=== PATIENT | female | born 1955 | race Caucasian/White ===

== ENCOUNTER 2019-11-03 16:58 | Emergency (ER) | payer SELFPAY ==
--- NOTE | 2019-11-03 17:52 | EDM.PDOC ---
ED HPI GENERAL MEDICAL PROBLEM - General Chief Complaint: General Stated Complaint: MEDICAL [facility]IA [facility] Time Seen by Provider: 11/03/19 17:25 Source of Information: Reports: Patient, EMS, Family History Limitations: Reports: Altered Mental Status, Other (Patient is struggling with significant confusion) - History of Present Illness INITIAL COMMENTS - FREE TEXT/NARRATIVE: 64-year-old female who was found at home repeatedly dialing 911 over several hours. The calls were going through but then she was hanging up so they had the pain her phone to localized her. On arrival they found her in no distress but jaundiced, severely confused initially and continually trying to dial 911 even if her phone was gone. claims that she was "normal" yesterday. When EMS arrived they had to give her 5 mg of IM Versed to get her to cooperate. She was agitated and insistent on continually dilating her phone, they could not carry on a conversation with her initially. Onset: Unknown/Unsure Associated Symptoms: Reports: Malaise. 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 Denies: Fever, Chills HEENT: Denies: Vision Change Respiratory: Reports: No Symptoms Cardiovascular: Reports: No Symptoms GI/Abdominal: Reports: Decreased Appetite Neurological: Reports: Confusion, Trouble Speaking. Denies: Headache Psychiatric: Reports: No Symptoms ED EXAM, GENERAL - Physical Exam Exam: See Below Exam Limited By: No Limitations General Appearance: Alert, No Apparent Distress, Other (On arrival to the emergency room she was still confused but it cleared rapidly) Eye Exam: Bilateral Eye: Nystagmus (I could not induce nystagmus either direction), Other (Significant bilateral jaundice) Head: Atraumatic Neck: Supple, Non-Tender Respiratory/Chest: Lungs Clear Cardiovascular: Regular Rate, Rhythm GI/Abdominal: Soft, Non-Tender Extremities: Other (Numerous spider veins of the extremities especially the feet). No: Pedal Edema Neurological: Confused, Disoriented, Slow to Respond Psychiatric: Anxious Course - Vital Signs Last Recorded V/S: Last Vital Signs Temp 98.6 F 11/03/19 17:05 Pulse 88 11/03/19 17:58 Resp 12 11/03/19 17:58 BP 117/67 11/03/19 17:58 Pulse Ox 99 11/03/19 17:58 - Orders/Labs/Meds Labs: Laboratory Tests 11/03/19 11/03/19 11/03/19 Range/Units 17:15 17:15 17:15 WBC 7.7 (4.5-11.0) K/uL RBC 3.77 (3.30-5.50) M/uL Hgb 13.5 (12.0-15.0) g/dL Hct 36.9 (36.0-48.0) % MCV 98 (80-98) fL MCH 36 H (27-31) pg MCHC 37 H (32-36) % Plt Count 167 (150-400) K/uL Neut % (Auto) 94 H (36-66) % Lymph % (Auto) 3 L (24-44) % [place] % (Auto) 3 (2-6) % Eos % (Auto) 0 L (2-4) % Baso % (Auto) 0 (0-1) % Sodium 115 L* (140-148) mmol/L Potassium 3.1 L (3.6-5.2) mmol/L Chloride 76 L (100-108) mmol/L Carbon Dioxide 26 (21-32) mmol/L Anion Gap 16.1 H (5.0-14.0) mmol/L BUN 11 (7-18) mg/dL Creatinine 1.3 H (0.6-1.0) mg/dL Est Cr Clr Drug Dosing 40.38 mL/min Estimated GFR (MDRD) 42 L (>60) Glucose 172 H (74-106) mg/dL Calcium 9.2 (8.5-10.1) mg/dL Total Bilirubin 8.1 H (0.2-1.0) mg/dL AST 175 H (15-37) U/L ALT 63 (12-78) U/L Alkaline Phosphatase 185 H (46-116) U/L Ammonia (11-32) mmol/L Total Protein 7.6 (6.4-8.2) g/dL Albumin 3.7 (3.4-5.0) g/dL Globulin 3.9 H (2.3-3.5) g/dL Albumin/Globulin Ratio 1.0 L (1.2-2.2) Lipase 97 (73-393) U/L Urine Color (YELLOW) Urine Appearance (CLEAR) Urine pH (5.0-8.0) Ur Specific [place] (1.008-1.030) Urine Protein (NEGATIVE) mg/dL Urine Glucose (UA) (NEGATIVE) mg/dL Urine Ketones (NEGATIVE) mg/dL Urine Occult Blood (NEGATIVE) Urine Nitrite (NEGATIVE) Urine Bilirubin (NEGATIVE) Urine Urobilinogen (0.2-1.0) EU/dL Ur Leukocyte Esterase (NEGATIVE) Urine RBC (0-5) Urine WBC (0-5) Ur Epithelial Cells Amorphous Sediment Urine Bacteria Urine Mucus Urine Other Ethyl Alcohol mg/dL 11/03/19 11/03/19 11/03/19 Range/Units 17:15 17:15 18:29 WBC (4.5-11.0) K/uL RBC (3.30-5.50) M/uL Hgb (12.0-15.0) g/dL Hct (36.0-48.0) % MCV (80-98) fL MCH (27-31) pg MCHC (32-36) % Plt Count (150-400) K/uL Neut % (Auto) (36-66) % Lymph % (Auto) (24-44) % [place] % (Auto) (2-6) % Eos % (Auto) (2-4) % Baso % (Auto) (0-1) % Sodium (140-148) mmol/L Potassium (3.6-5.2) mmol/L Chloride (100-108) mmol/L Carbon Dioxide (21-32) mmol/L Anion Gap (5.0-14.0) mmol/L BUN (7-18) mg/dL Creatinine (0.6-1.0) mg/dL Est Cr Clr Drug Dosing mL/min Estimated GFR (MDRD) (>60) Glucose (74-106) mg/dL Calcium (8.5-10.1) mg/dL Total Bilirubin (0.2-1.0) mg/dL AST (15-37) U/L ALT (12-78) U/L Alkaline Phosphatase (46-116) U/L Ammonia 29 (11-32) mmol/L Total Protein (6.4-8.2) g/dL Albumin (3.4-5.0) g/dL Globulin (2.3-3.5) g/dL Albumin/Globulin Ratio (1.2-2.2) Lipase (73-393) U/L Urine Color Brown A (YELLOW) Urine Appearance Cloudy A (CLEAR) Urine pH 6.5 (5.0-8.0) Ur Specific [place] 1.020 (1.008-1.030) Urine Protein Trace H (NEGATIVE) mg/dL Urine Glucose (UA) Negative (NEGATIVE) mg/dL Urine Ketones Negative (NEGATIVE) mg/dL Urine Occult Blood Negative (NEGATIVE) Urine Nitrite Positive H (NEGATIVE) Urine Bilirubin Small H (NEGATIVE) Urine Urobilinogen 2.0 H (0.2-1.0) EU/dL Ur Leukocyte Esterase Negative (NEGATIVE) Urine RBC 5-10 H (0-5) Urine WBC 0-5 (0-5) Ur Epithelial Cells Many Amorphous Sediment Many Urine Bacteria Many Urine Mucus Many Urine Other See note Ethyl Alcohol 7 mg/dL Meds: Medications Discontinued Medications Generic Name Dose Route Start Last Admin Trade Name Freq PRN Reason Stop Dose Admin Thiamine HCl 500 mg/ Sodium 105 mls @ 210 mls/hr 11/03/19 18:06 11/03/19 19:28 Chloride IV 11/03/19 18:07 210 mls/hr ONETIME ONE Administration Sodium Chloride 1,000 mls @ 150 mls/hr 11/03/19 18:30 11/03/19 19:29 Normal Saline IV 150 mls/hr ASDIRECTED GIANCARLO Administration - Re-Assessments/Exams Free Text/Narrative Re-Assessment/Exam: 11/03/19 18:38 An IV was started, CBC, ammonia, CMP and lipase were obtained. CBC was normal, ammonia was normal, but bilirubin was 8.1, sodium 115 and chloride 76. She was also volume contracted with a slightly elevated creatinine and a GFR of 46. She was given 500 mg of IV thiamine initiated, and 150 cc of normal saline an hour. We have no beds available at the hospital so she will be transferred to [facility], Dr. Olivarez accepted the patient. Prior to transfer the hospitalist service at [facility] asked for CT the head so this was ordered, and care was turned over to Dr. Claire pending disposition. Initially I thought the patient was having Wernicke's encephalopathy, but now it appears she may have been postictal possibly having a seizure from her hyponatremia. Alcohol level was 0.007, she likely is having the symptoms due to chronic alcoholism. Departure - Departure Time of Disposition: 19:31 Disposition: DC/Tfer to Other Clinical Impression: Hyponatremia, Hyperbilirubinemia, Delirium - Discharge Information Referrals: PCP,None [Primary Care Provider] - Forms: ED Department Discharge Care Plan Goals: After her head CT, images will be pushed to [facility] and the patient will be arranged for transfer for further evaluation and treatment of severe hyponatremia, hyperbilirubinemia and confusion. Sepsis Event Note (ED) - Evaluation Sepsis Screening Result: No Definite Risk
[2019-11-03] MEDS ORDERED: Thiamine 500 MG in Sodium Chloride 0.9% 100 ML IV ONE (18:06)
[2019-11-03] MEDS ORDERED: Sodium Chloride 0.9% 1,000 ML IV SCH (18:30)
--- NOTE | 2019-11-03 19:30 | CRLCT ---
INDICATION: Confusion TECHNIQUE: Head CT without contrast. COMPARISON: None FINDINGS: CSF spaces: Within normal limits for age. Brain parenchyma: There are nonspecific low attenuation white matter changes consistent with chronic microvascular disease. No sign of mass, hemorrhage, or midline shift. Skull base and calvarium: The visualized paranasal sinuses and mastoid air cells demonstrate no acute or significant findings. The visualized orbits are grossly unremarkable. No skull fractures. IMPRESSION: 1. No acute findings. 2. Nonspecific white matter disease, typical of chronic microvascular disease. Please note that all CT scans at this facility use dose modulation, iterative reconstruction, and/or weight-based dosing when appropriate to reduce radiation dose to as low as reasonably achievable. Dictated by Damaris Walls MD @ Nov 03 2019 7:24PM Signed by Dr. Damaris Walls @ Nov 03 2019 7:28PM
== END 2019-11-03 19:31 | disposition other institution (70) ==
LOC: JP.ED 16:58
DX: E87.1 Hypo-osmolality and hyponatremia (principal); E80.6 Other disorders of bilirubin metabolism; R41.0 Disorientation, unspecified; I10 Essential (primary) hypertension; E03.9 Hypothyroidism, unspecified; Z87.891 Personal history of nicotine dependence; Z79.899 Other long term (current) drug therapy
CPT/HCPCS: 36415; 70450; 80053; 80307; 81001; 82140; 83690; 85025; 96374; 99285; J3411; J7030; J7050; 99284

== ENCOUNTER 2021-03-22 13:26 | Emergency (ER) | payer MEDICAID ==
--- NOTE | 2021-03-22 14:18 | EDM.PDOC ---
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 She called last week to make and appt to see her doctor and can't get in until the of this month. She admits to being a heavy drinker, but has not drank recently. She denies fever or chills. May be mildly constipated. Onset: Gradual Onset Date: 02/17/21 Duration: Week(s): (4+), Getting Worse Location: Reports: Abdomen, Lower Extremity, Left, Lower Extremity, Right Quality: Reports: Dull, Pressure Severity: Mild Improves with: Reports: None Worsens with: Reports: Other (time) Context: Reports: Other (See HPI) Associated Symptoms: Reports: No Other Symptoms. 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 Psychiatric History: Reports: Addiction Endocrine/Metabolic History: Reports: Hypothyroidism - Infectious Disease History Infectious Disease History: Reports: Chicken Pox Social & Family History - Tobacco Use Tobacco Use Status *Q: Never Tobacco User - Caffeine Use Caffeine Use: Reports: Coffee - Recreational Drug Use Recreational Drug Use: No ED ROS GENERAL - Review of Systems Review Of Systems: See Below Constitutional: Reports: No Symptoms HEENT: Reports: No Symptoms Respiratory: Reports: No Symptoms Cardiovascular: Reports: Edema (of both legs) GI/Abdominal: Reports: Constipation (mild), Distension. Denies: Nausea, Vomiting : Reports: No Symptoms Musculoskeletal: Reports: No Symptoms Skin: Reports: No Symptoms Neurological: Reports: No Symptoms ED EXAM, GENERAL - Physical Exam Exam: See Below Exam Limited By: No Limitations General Appearance: Alert, WD/WN, No Apparent Distress Eye Exam: Bilateral Eye: Other (bilateral scleral icterus) Ears: Normal External Exam, Normal Canal, Hearing Grossly Normal Ear Exam: Bilateral Ear: Auricle Normal, Canal Normal Nose: Normal Inspection, No Blood Throat/Mouth: Normal Inspection, Normal Lips, Normal Oropharynx, Normal Voice, No Airway Compromise Head: Atraumatic, Normocephalic Neck: Normal Inspection Respiratory/Chest: No Respiratory Distress, Lungs Clear, Normal Breath Sounds, No Accessory Muscle Use Cardiovascular: Regular Rate, Rhythm. No: No Edema (1+ pitting edema of both legs below the knees) GI/Abdominal: Normal Bowel Sounds, Non-Tender, Distended, Other (ascites present). No: Soft (firm), No Distention, Tender Extremities: Normal Inspection, Pedal Edema (1+ pitting). No: Non-Tender, No Pedal Edema, Tomasz's Sign, Limited Range of Motion, Increased Warmth, Redness Neurological: Alert, Oriented, CN II-XII Intact, Normal Cognition, No Motor/Sensory Deficits Psychiatric: Normal Affect, Normal Mood Skin Exam: Warm, Dry, Intact, Normal Color, No Rash Course - Vital Signs Last Recorded V/S: Last Vital Signs Temp 36.6 C 03/22/21 13:59 Pulse 104 H 03/22/21 13:59 Resp 16 03/22/21 13:59 BP 122/60 03/22/21 13:59 Pulse Ox 97 03/22/21 13:59 - Orders/Labs/Meds Orders: Active Orders 24 hr Category Date Time Status UA W/MICROSCOPIC [URIN] Stat Lab 03/22/21 14:13 Ordered Spironolactone [Aldactone] Med 03/22/21 15:00 Once 25 mg PO ONETIME ONE Labs: Laboratory Tests 03/22/21 03/22/21 Range/Units 14:26 14:26 WBC 6.7 (4.5-11.0) K/uL RBC 3.46 (3.30-5.50) M/uL Hgb 12.6 (12.0-15.0) g/dL Hct 36.3 (36.0-48.0) % MCV 105 H (80-98) fL MCH 36 H (27-31) pg MCHC 35 (32-36) % Plt Count 124 L (150-400) K/uL Sodium 125 L (140-148) mmol/L Potassium 3.3 L (3.6-5.2) mmol/L Chloride 89 L (100-108) mmol/L Carbon Dioxide 27 (21-32) mmol/L Anion Gap 12.3 (5.0-14.0) mmol/L BUN 17 D (7-18) mg/dL Creatinine 1.2 H (0.6-1.0) mg/dL Est Cr Clr Drug Dosing 43.18 mL/min Estimated GFR (MDRD) 45 L (>60) Glucose 116 H (74-106) mg/dL Calcium 8.4 L (8.5-10.1) mg/dL Total Bilirubin 14.6 H D (0.2-1.0) mg/dL AST 143 H (15-37) U/L ALT 42 (12-78) U/L Alkaline Phosphatase 161 H (46-116) U/L Total Protein 6.3 L (6.4-8.2) g/dL Albumin 2.0 L (3.4-5.0) g/dL Globulin 4.3 H (2.3-3.5) g/dL Albumin/Globulin Ratio 0.5 L (1.2-2.2) Departure - Departure Time of Disposition: 15:10 Disposition: Home, Self-Care 01 Condition: Fair Clinical Impression: Ascites Qualifiers: Ascites type: due to alcoholic hepatitis Qualified Code(s): K70.11 - Alcoholic hepatitis with ascites - Discharge Information *PRESCRIPTION DRUG MONITORING PROGRAM REVIEWED*: Not Applicable *COPY OF PRESCRIPTION DRUG MONITORING REPORT IN PATIENT BLAISE: Not Applicable Referrals: Sheldon Tran MD [Primary Care Provider] - Forms: ED Department Discharge Additional Instructions: Take spironolactone 25 mg in the AM and midafternoon daily. Elevate your legs above your heart to help reduce the swelling. NO alcohol at all should be used from now on as your liver is failing and further damage threatens worsening your condition. See your doctor for follow up and to have your labs followed and med dosages adjusted. Sepsis Event Note (ED) - Evaluation Sepsis Screening Result: No Definite Risk - Focused Exam Vital Signs: Vital Signs Temp Pulse Resp BP Pulse Ox 03/22/21 13:59 36.6 C 104 H 16 122/60 97 03/22/21 13:53 36.6 C 104 H 16 122/60 97 - My Orders Last 24 Hours: My Active Orders 03/22/21 14:13 UA W/MICROSCOPIC [URIN] Stat 03/22/21 15:00 Spironolactone [Aldactone] 25 mg PO ONETIME ONE - Assessment/Plan Last 24 Hours: My Active Orders 03/22/21 14:13 UA W/MICROSCOPIC [URIN] Stat 03/22/21 15:00 Spironolactone [Aldactone] 25 mg PO ONETIME ONE
[2021-03-22] MEDS ORDERED: Spironolactone 25 MG Tab PO ONE (15:00)
== END 2021-03-22 15:24 | disposition home or self-care (01) ==
LOC: JP.ED 13:26
DX: K70.31 Alcoholic cirrhosis of liver with ascites (principal); I10 Essential (primary) hypertension; E03.9 Hypothyroidism, unspecified; Z79.899 Other long term (current) drug therapy
CPT/HCPCS: 36415; 80053; 85027; 99284; A9270

== ENCOUNTER 2025-03-10 12:47 | Inpatient (IN) | payer MEDICAID, MEDICARE ==
[2025-03-10] MEDS ORDERED: Naloxone 0.4 MG/ML SDV IVPUSH PRN (13:45)
[2025-03-10] MEDS: diphenhydrAMINE 50 MG/ML SDV IVPUSH ONE (14:06)
[2025-03-10] MEDS: Ondansetron 4 MG/2 ML SDV IVPUSH ONE (14:11)
[2025-03-10 14:18] LABS: BASOPHILS ABSOLUTE AUTO 0.05 K/uL (0.00-0.10); BASOPHILS PERCENT AUTO 0.8 % (0.1-1.3); EOSINOPHILS ABSOLUTE AUTO 1.05 K/uL (0.00-0.40); EOSINOPHILS PERCENT AUTO 16.1 % (0.0-5.4); IMMATURE GRAN ABSOLUTE AUTO 0.04 K/uL (0.00-0.23); IMMATURE GRAN PERCENT AUTO 0.6 % (0.0-0.7); LYMPHOCYTES ABSOLUTE AUTO 0.67 K/uL (0.8-3.3); LYMPHOCYTES PERCENT AUTO 10.3 % (11.4-47.7); MONOCYTES ABSOLUTE AUTO 0.79 K/uL (0.20-0.90); MONOCYTES PERCENT AUTO 12.1 % (3.3-12.6); NEUTROPHILS ABSOLUTE AUTO 3.93 K/uL (1.0-7.6); NEUTROPHILS PERCENT AUTO 60.1 % (40.0-78.1); PLATELET COUNT,PLT 85 K/uL (130-375); WHITE BLOOD CELL COUNT,WBC 6.5 K/uL (3.2-11.0)
[2025-03-10 14:28] LABS: RED BLOOD CELL COUNT 1.79 M/uL (3.77-5.24)
[2025-03-10 14:30] LABS: A/G RATIO 0.5 (1.2-2.2); ALANINE AMINOTRANSFERASE,ALT 26 U/L (12-78); BILIRUBIN TOTAL 17.4 mg/dL (0.2-1.0); BLOOD UREA NITROGEN,BUN 15 mg/dL (7-18); CARBON DIOXIDE,CO2 29 mmol/L (21-32); CHLORIDE,CL 89 mmol/L (100-108); EST CRCL DRUG DOSING (CG) 30.06 mL/min; ESTIMATED GFR 33 mL/min (>60); GLUCOSE RANDOM 129 mg/dL (74-106); SODIUM,NA 128 mmol/L (140-148)
[2025-03-10 14:34] LABS: ASPARTATE AMNIOTRANSFERASE,AST 47 U/L (15-37); CREATININE 1.7 mg/dL (0.6-1.0); PROTEIN TOTAL,TP 5.4 g/dL (6.4-8.2)
[2025-03-10 14:35] LABS: POTASSIUM,K 2.8 mmol/L (3.6-5.2)
[2025-03-10] MEDS: NS + KCl 20mEq/L 1,000 ML IV SCH (15:12)
[2025-03-10 15:58] LABS: AMPHETAMINES SCREEN, URINE NEGATIVE (NEGATIVE); METHADONE SCREEN, URINE NEGATIVE (NEGATIVE); METHAMPHETAMINES SCREEN, URINE NEGATIVE (NEGATIVE); OXYCODONE SCREEN,URINE NEGATIVE (NEGATIVE); PROPOXYPHENE SCREEN,URINE NEGATIVE (NEGATIVE); THC SCREEN,URINE 50 NG/ML NEGATIVE (NEGATIVE)
[2025-03-10 16:00] LABS: APPEARANCE,URINE CLOUDY (CLEAR); GLUCOSE,URINE NEGATIVE (NEGATIVE); OCCULT BLOOD,URINE NEGATIVE (NEGATIVE)
[2025-03-10 16:02] LABS: SQUAMOUS EPITHELIAL CELLS,UR MODERATE /HPF; UROTHELIAL CELLS,URINE NOT SEEN /HPF
[2025-03-10] MEDS: Ciprofloxacin in D5W 400 MG in Premix Bag 1 BAG IV ONE (17:02)
[2025-03-10 17:20] LABS: INR 2.2
[2025-03-10] MEDS: Potassium Chloride 20 MEQ Tab.ER PO ONE ×2 (17:29→21:12)
[2025-03-10] MEDS: Albumin Human 25 GM in Premix Bag 1 BAG IV ONE (17:29)
[2025-03-10] MEDS ORDERED: Sodium Chloride 0.9% 10 ML Syringe FLUSH PRN (19:01)
[2025-03-10] MEDS ORDERED: Ondansetron 4 MG/2 ML SDV IV PRN (19:01)
[2025-03-10] MEDS ORDERED: Albuterol 0.083% 2.5 MG/3 ML Neb Soln NEB PRN (19:01)
[2025-03-10] MEDS: Magnesium Sulfate 2 GM/50 mL 2 GM in Premix Bag 1 BAG IV SCH (19:36)
[2025-03-10] MEDS: Lactulose Soln 10 GM/15 ML 15 ML UD Cup PO SCH (21:11)
[2025-03-11 06:03] LABS: PLATELET COUNT,PLT 55.0 K/uL (130-375); RED BLOOD CELL COUNT 1.57 M/uL (3.77-5.24); WHITE BLOOD CELL COUNT,WBC 6.9 K/uL (3.2-11.0)
[2025-03-11 06:19] LABS: INR 2.6
[2025-03-11 06:33] LABS: A/G RATIO 0.7 (1.2-2.2); ALANINE AMINOTRANSFERASE,ALT 21 U/L (12-78); ASPARTATE AMNIOTRANSFERASE,AST 38 U/L (15-37); BILIRUBIN TOTAL 17.2 mg/dL (0.2-1.0); BLOOD UREA NITROGEN,BUN 15 mg/dL (7-18); CARBON DIOXIDE,CO2 30 mmol/L (21-32); CHLORIDE,CL 94 mmol/L (100-108); CREATININE 1.5 mg/dL (0.6-1.0); EST CRCL DRUG DOSING (CG) 34.07 mL/min; ESTIMATED GFR 38 mL/min (>60); GLUCOSE RANDOM 97 mg/dL (74-106); POTASSIUM,K 4.0 mmol/L (3.6-5.2); PROTEIN TOTAL,TP 4.9 g/dL (6.4-8.2); SODIUM,NA 129 mmol/L (140-148)
[2025-03-11] MEDS ORDERED: Non-Formulary Medication 1 Each (Magnesium Oxide/Mag Aa Chelate [Magnesium] 300 MG Capsule PO SCH (09:00)
[2025-03-11] MEDS: Albumin Human 25 GM in Premix Bag 1 BAG IV ONE (14:00)
[2025-03-12 06:03] LABS: PLATELET COUNT,PLT 47.0 K/uL (130-375); WHITE BLOOD CELL COUNT,WBC 6.2 K/uL (3.2-11.0)
[2025-03-12 06:23] LABS: A/G RATIO 0.9 (1.2-2.2); ALANINE AMINOTRANSFERASE,ALT 22 U/L (12-78); ASPARTATE AMNIOTRANSFERASE,AST 62 U/L (15-37); BILIRUBIN TOTAL 13.7 mg/dL (0.2-1.0); BLOOD UREA NITROGEN,BUN 14 mg/dL (7-18); CARBON DIOXIDE,CO2 27 mmol/L (21-32); CHLORIDE,CL 94 mmol/L (100-108); CREATININE 1.5 mg/dL (0.6-1.0); EST CRCL DRUG DOSING (CG) 34.07 mL/min; ESTIMATED GFR 38 mL/min (>60); GLUCOSE RANDOM 140 mg/dL (74-106); POTASSIUM,K 3.7 mmol/L (3.6-5.2); PROTEIN TOTAL,TP 4.8 g/dL (6.4-8.2); SODIUM,NA 128 mmol/L (140-148)
[2025-03-12 06:29] LABS: INR 2.5; RED BLOOD CELL COUNT 1.89 M/uL (3.77-5.24)
== END 2025-03-13 11:10 | disposition home health service (06) | DRG 433 ==
LOC: JP.ED 12:47 → JP.ICU 17:01
PROVIDERS: ADMIT Hospitalist; ATTEND Internal Medicine
PROC: 30233N1 Transfusion of Nonautologous Red Blood Cells into Peripheral Vein, Percutaneous Approach (ICD-10-PCS; principal; 2025-03-10)
PROC: 0W9G3ZZ Drainage of Peritoneal Cavity, Percutaneous Approach (ICD-10-PCS; principal; 2025-03-10)
DX: K70.31 Alcoholic cirrhosis of liver with ascites (principal); D61.818 Other pancytopenia; N17.9 Acute kidney failure, unspecified; I10 Essential (primary) hypertension; N30.00 Acute cystitis without hematuria; K76.82 Hepatic encephalopathy; Z79.890 Hormone replacement therapy; K72.90 Hepatic failure, unspecified without coma; E03.9 Hypothyroidism, unspecified; N18.9 Chronic kidney disease, unspecified; D63.8 Anemia in other chronic diseases classified elsewhere; E87.6 Hypokalemia; E83.42 Hypomagnesemia; I12.9 Hypertensive chronic kidney disease with stage 1 through stage 4 chronic kidney disease, or unspecified chronic kidney disease; E86.0 Dehydration; F17.200 Nicotine dependence, unspecified, uncomplicated; Z79.899 Other long term (current) drug therapy
CPT/HCPCS: 36415; 74176; 80053; 80305; 80307; 81001; 82140; 83605; 83690; 83735; 85025; 85610; 86140; 87086; 96361; 96365; 96366; 96375; 99285 ×2; J1171; J1200; J2405; J3480; J7030; 36430; 84443; 85018; 85027; 86850; 86900; 86901; 86920; 86922; 87088; 87186; 97161-GP; 99223; 99232; 99238; A9270-GY; J0696; J3475; P9016; P9047

== ENCOUNTER 2025-03-20 12:48 | Emergency (ER) | payer MEDICAID, MEDICARE | END 2025-03-20 14:32 | disposition left against medical advice (07) | LOC: JP.ED 12:48 | DX: Z53.21 Procedure and treatment not carried out due to patient leaving prior to being seen by health care provider (principal) ==